=== PATIENT | female | born 1965 | race Caucasian/White ===

== ENCOUNTER 2016-07-10 12:54 | Day surgery (SDC) | payer BC ==
[~2016-07-10 12:54] MED LIST: ADVI200C9 PO; CETI10 PO; GLUCTAB PO; TAB-TAB PO
[2016-07-10 13:36] VITALS: BP 158/76; PULSE 80; RESP 18; TEMP 98; O2SAT 99
[2016-07-10 14:25] VITALS: BP 156/78; PULSE 74; RESP 16; TEMP 98.4; O2SAT 98
[2016-07-10 14:40] VITALS: BP 154/80; PULSE 76; RESP 16; O2SAT 98
--- NOTE | 2016-07-10 15:33 | RADRPT ---
EXAM DATE/TIME: 07/10/2016 13:35 [place] COMPARISON: No previous studies available for comparison. EXTERNAL COMPARISON: [facility], US THYROID, May 12 2016 INDICATIONS : Left thyroid nodule. MEDICAL HISTORY : Asthma. Arthritis. SURGICAL HISTORY : Tonsillectomy. Appendectomy. Hysterectomy. Septoplasty. ENCOUNTER: Initial ACUITY: 1 day PAIN SCORE: 3/10 LOCATION: Left thyroid ORGAN: Left thyroid lobe SPECIMENS: Three fine needle aspirate(s) submitted for pathologic evaluation. DEVICE: 22 gauge needle Post procedure scanning reveals no hematoma or other complication. The possibility does exist that the tissue obtained will be non-diagnostic. If the sample is non-conor gnostic a repeat biopsy or surgical biopsy may need to be performed. TECHNIQUE: 1. Ultrasound guidance for needle biopsy. 2. Needle biopsy. The risks, benefits, and alternatives to ultrasound guided needle biopsy were explained to the patien t in detail including the risk of bleeding and infection. Written and verbal informed consent was ob tained. With the patient on the ultrasound table, images were obtained. Overlying skin was prepped and drape d in the usual sterile fashion and Lidocaine was utilized as a local anesthetic. A needle was advanced into the identified target and the number of specimens as above obtained and bautista bmitted for pathologic evaluation. The patient tolerated the procedure well and left the ultrasound suite in stable condition. CONCLUSION: Uncomplicated ultrasound guided needle biopsy of the small nodule in the left thyroid lobe. Shar Gill MD on July 10, 2016 at 15:30 Board Certified Radiologist. This report was verified electronically.
[2016-07-10] MEDS ORDERED: LIDOCAINE HCL 1% PF 30 ML VIAL ONE (17:19)
== END 2016-07-10 14:55 | disposition home or self-care (01) ==
LOC: HRAD 12:54 → HRIP 12:59 → HRAD 14:55
DX: E04.1 Nontoxic single thyroid nodule (principal); J45.909 Unspecified asthma, uncomplicated
CPT/HCPCS: 10022; 76942; 88172; 88173